=== PATIENT | male | born 1995 | race Two or more races ===

== ENCOUNTER 2024-04-15 09:38 | Emergency (ER) | payer OTHER ==
[~2024-04-15] VITALS: Ht 172.7 cm; Wt 67.6 kg
[2024-04-15] MEDS ORDERED: THIAMINE HCL 100 MG TABLET ONE (10:00)
[2024-04-15] MEDS ORDERED: ONDANSETRON 4 MG/2 ML VIAL ONE (10:00)
[2024-04-15] MEDS ORDERED: PANTOPRAZOLE SODIUM 40 MG VIAL ONE (10:00)
[2024-04-15] MEDS: PANTOPRAZOLE SODIUM 40 MG VIAL IV ONE (10:14)
[2024-04-15] MEDS: IV NORMAL SALINE 1000 ML BAG IV ONE (10:14)
[2024-04-15] MEDS: ONDANSETRON 4 MG/2 ML VIAL IV ONE (10:15)
[2024-04-15 10:21] LABS: CALCIUM 8.8 mg/dL (8.5-10.1); POTASSIUM 3.7 mmol/L (3.5-5.1)
[2024-04-15 10:26] LABS: ALBUMIN 4.3 g/dL (3.4-5.0); BILIRUBIN,DIRECT 0.2 mg/dL (0.0-0.2); BILIRUBIN,TOTAL 0.7 mg/dL (0.2-1.0); TOTAL PROTEIN, SERUM 8.2 g/dL (6.4-8.2)
[2024-04-15 10:27] LABS: BASOPHILS # (AUTO) 0.1 K/UL (0.0-0.2); BASOPHILS % (AUTO) 0.6 % (0.0-2.0); EOSINOPHILS # (AUTO) 0.1 K/uL (0.0-0.7); EOSINOPHILS % (AUTO) 0.6 % (0.0-7.0); HEMATOCRIT 43.7 % (36.7-47.1); LYMPHOCYTES # (AUTO) 2.5 K/uL (0.8-4.8); LYMPHOCYTES % (AUTO) 29.8 % (20.5-51.5); MEAN CORPUSCULAR HEMOGLOBIN 28.6 uug (23.8-33.4); MEAN CORPUSCULAR HGB CONC 34 g/dL (32.5-36.3); MEAN CORPUSCULAR VOLUME 83.5 fL (73.0-96.2); MONOCYTES # (AUTO) 0.5 K/uL (0.1-1.30); MONOCYTES % (AUTO) 5.8 % (0.0-11.0); NEUTROPHILS # (AUTO) 5.2 K/uL (1.8-8.9); NEUTROPHILS % (AUTO) 63.2 % (38.5-71.5); PLATELET COUNT (AUTO) 252 K/uL (152-348); RED BLOOD CELL COUNT(AUTO) 5.24 MIL/uL (4.06-5.63); RED CELL DISTRIBUTION WIDTH 13.4 % (12.1-16.2); WHITE BLOOD COUNT (AUTO) 8.3 K/uL (3.6-10.2)
[2024-04-15] MEDS: THIAMINE HCL 100 MG TABLET PO ONE (10:30)
[2024-04-15 10:33] LABS: DIFFERENTIAL COMMENT 1
[2024-04-15] MEDS ORDERED: ONDA4TAB5 PO (11:33)
[2024-04-15] MEDS ORDERED: OMEP20TA20 PO (11:33)
[2024-04-15 12:38] VITALS: BP 110/68; TEMP 97; O2SAT 99
== END 2024-04-15 12:15 | disposition home or self-care (01) ==
LOC: ER 09:44
DX: K92.2 Gastrointestinal hemorrhage, unspecified (principal); F10.21 Alcohol dependence, in remission; Z79.899 Other long term (current) drug therapy; Y90.0 Blood alcohol level of less than 20 mg/100 ml
CPT/HCPCS: 99284; 96374; 96361; 96375; 80076; 80048; 83735; 85025; 85610; 86850; 86900; 86901; 36415; J2405; J2470; J7040; A4606; A4663